=== PATIENT | male | born 1970 | race Caucasian/White ===

== ENCOUNTER 2016-10-08 10:37 | Emergency (ER) | payer OTHER ==
[2016-10-08 10:49] VITALS: BP 139/101
--- NOTE | 2016-10-08 11:58 | EDM.PDOCBH ---
ED HPI GENERAL MEDICAL PROBLEM - General Chief Complaint: Behavioral/Psych Stated Complaint: Depression Time Seen by Provider: 10/08/16 11:00 Source of Information: Reports: Patient, RN Notes Reviewed History Limitations: Reports: No Limitations - History of Present Illness INITIAL COMMENTS - FREE TEXT/NARRATIVE: 46 year old male presents to the ED today with complaints of depression, mood swings, and thoughts of suicide. He has experienced depression and suicidal thoughts in the past but denies previous suicidal attempts. He says the thoughts of suicide come and go. He does not have an active plan. He had surgery about 1.[address] Whipple. He had 3 fingers removed at the MCP joints. He is experiencing a lot of nerve and phantom pain. He was started on gabapentin and Bronx post-operatively. He is concerned that the gabapentin could be contributing to his depression. 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 He said he impulsively quit his job but feels he can likely get his job back. He describes mood swings. He says he is happy one minute and then will be tearful the next. He lives alone and becomes tearful when he says he doesn't get to see his son. He denies drug or alcohol use. He's been on antidepressants in the past but does not recall the name. He is sleeping well and his appetite is ok. He had a followup appointment with Migdalia ONEIL today at [facility]. He expressed suicidal thoughts and was sent to the ED for evaluation. Left Hand Pain Score (Numeric/FACES): 6 - Related Data Allergies Allergy/AdvReac Type Severity Reaction Status Date / Time No Known Allergies Allergy Verified 01/03/14 15:47 Home Meds: Home Meds Acetaminophen/HYDROcodone [Bronx 325-5 MG] 1 tab PO Q6H PRN 10/08/16 [History] Acetaminophen/HYDROcodone [Bronx 325-5 MG] 1 tab PO Q6H PRN #6 tablet 10/08/16 [ Rx] FLUoxetine [PROzac] 20 mg PO DAILY #30 cap 10/08/16 [Rx] Gabapentin [Neurontin] 300 mg PO TID 10/08/16 [History] Naproxen 500 mg PO BID #30 tablet 10/08/16 [Rx] Past Medical History Psychiatric History: Reports: Depression - Past Surgical History Musculoskeletal Surgical History: Reports: Other (See Below) Other Musculoskeletal Surgeries/Procedures:: finger ambutation to left hand Social & Family History - Tobacco Use Smoking Status *Q: Current Every Day Smoker Years of Tobacco use: 20 Packs/Tins Daily: 1.5 - Recreational Drug Use Recreational Drug Use: Yes Drug Use in Last 12 Months: No Recreational Drug Type: Reports: 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 Denies: Fever, Chills Respiratory: Reports: No Symptoms. Denies: Shortness of Breath Cardiovascular: Reports: No Symptoms. Denies: Chest Pain GI/Abdominal: Reports: No Symptoms. Denies: Nausea, Vomiting Neurological: Denies: Headache Psychiatric: Reports: Anxiety, Depression, Mood Lability, Suicidal Ideation ED EXAM, BEHAVIORAL HEALTH - Physical Exam Exam: See Below Exam Limited By: No Limitations General Appearance: Alert, WD/WN, No Apparent Distress, Other (tearful) Respiratory/Chest: No Respiratory Distress, Lungs Clear, Normal Breath Sounds Cardiovascular: Regular Rate, Rhythm Neurological: Alert, Normal Cognition, Normal Gait, Oriented x 3 Psychiatric: Alert, Depressed Mood, Tearful, Suicidal Thoughts, Other (Makes good eye contact, openly discusses his feelings. ). No: Poor Eye Contact, Withdrawn, Suicidal Plan, Grandiose Thoughts, Paranoid Thoughts, Threatening Behavior COURSE, BEHAVIORAL HEALTH COMP - Course Vital Signs: Last Vital Signs Temp 97.5 F 10/08/16 10:43 Pulse 54 L 10/08/16 10:43 Resp 16 10/08/16 10:43 BP 139/101 H 10/08/16 10:43 Pulse Ox 96 10/08/16 10:43 Re-Assessment/Re-Exam: I offered the patient admission but he does not feel he needs inpatient treatment. He is depressed but not actively suicidal. He reports feeling scared by his thoughts. He does not exhibit suicidal intent. He's had a lot of changes in his life recently which are contributing to his depression. I called and spoke to Psychiatrist Dr. Guzman. He recommends starting the patient on Prozac 20mg daily and then seeing him or Charleen Tavarez in follow-up in 2-3 weeks. The patient asked about a refill of his Bronx. I called and spoke to Migdalia Duncan PAC to see if they refilled his Bronx during his appointment today. Migdalia Duncan felt uncomfortable refilling his Bronx since he was voicing suicidal thoughts. Migdalia also said the patient reported a history of opiate addiction in the past. Migdalia would prefer that the patient take Naproxyn for pain. Will provide a small Rx for Bronx and a prescription for Naproxyn. Also provided prescription for Prozac. Patient agrees to return to the ED with any worsening thoughts of suicide. We scheduled him an appointment with Charleen Tavarez. Discharge instructions as documented. Departure - Departure Time of Disposition: 11:49 Disposition: Home, Self-Care 01 Condition: Good Clinical Impression: Depressive disorder, Post-operative pain - Discharge Information Prescriptions: Acetaminophen/HYDROcodone [Bronx 325-5 MG] 1 tab PO Q6H PRN #6 tablet PRN Reason: Pain FLUoxetine [PROzac] 20 mg PO DAILY #30 cap Naproxen 500 mg PO BID #30 tablet Referrals: PCP,None [Primary Care Provider] - Forms: ED Department Discharge Additional Instructions: Start Prozac 20mg once a day Follow-up with Charleen Tavarez on 10/21/16. Your appointment is at 10:00 but please arrive at 9:30 to complete paperwork Bring your photo ID Return to ER with any worsening of symptoms, thoughts of suicide, or additional concerns Continue your gabapentin I spoke to Migdalia Duncan at [facility], we are going to start you on Naproxyn 1 tab twice a day as needed for pain. You can continue your Bronx as prescribed. Follow-up with physical therapy and your surgeon as recommended.
== END 2016-10-08 12:15 | disposition home or self-care (01) ==
LOC: JD.ED 10:37
DX: F32.9 Major depressive disorder, single episode, unspecified (principal); G89.18 Other acute postprocedural pain; F17.210 Nicotine dependence, cigarettes, uncomplicated; Z79.899 Other long term (current) drug therapy
CPT/HCPCS: 99284; 99285

== ENCOUNTER 2016-11-07 17:55 | Emergency (ER) | payer OTHER ==
[2016-11-07 18:06] VITALS: BP 135/88
--- NOTE | 2016-11-07 18:25 | EDM.PDOC ---
ED HPI GENERAL MEDICAL PROBLEM - General Chief Complaint: General Stated Complaint: Medication refill Time Seen by Provider: 11/07/16 18:10 Source of Information: Reports: Patient, Old Records, RN Notes Reviewed History Limitations: Reports: No Limitations - History of Present Illness INITIAL COMMENTS - FREE TEXT/NARRATIVE: 46 year old male presents to the ED requesting refill of his Prozac. He has 1 pill left and takes it nightly. He is scheduled to see Charleen Tavarez VEHICLE ASSEMBLY INSPECTOR on the regarding his depression. I saw him earlier this month for depression. Dr. Guzman was consulted and he was started on prozac. He was scheduled with Charleen Tavarez for 10/21/16 but was unable to make his appointment due to miscommunication. He says he is feeling much better since his last visit. He is going to addiction classes for smoking. He is back to work and overall feels much better. He denies suicidal ideation. - Related Data Allergies Allergy/AdvReac Type Severity Reaction Status Date / Time No Known Allergies Allergy Verified 01/03/14 15:47 Home Meds: Home Meds FLUoxetine [PROzac] 20 mg PO DAILY #30 cap 10/08/16 [Rx] Gabapentin [Neurontin] 300 mg PO TID 10/08/16 [History] FLUoxetine [PROzac] 20 mg PO DAILY #20 cap 11/07/16 [Rx] Past Medical History Cardiovascular History: Reports: None Psychiatric History: Reports: Depression - Past Surgical History Musculoskeletal Surgical History: Reports: Other (See Below) Other Musculoskeletal Surgeries/Procedures:: finger ambutation to left hand Social & Family History - Tobacco Use Smoking Status *Q: Unknown Ever Smoked Years of Tobacco use: 20 Packs/Tins Daily: 1.5 - Recreational Drug Use Recreational Drug Use: Yes Drug Use in Last 12 Months: No 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 Denies: Headache Psychiatric: Reports: Depression ED EXAM, GENERAL - Physical Exam Exam: See Below Exam Limited By: No Limitations General Appearance: Alert, WD/WN, No Apparent Distress Respiratory/Chest: No Respiratory Distress, Lungs Clear, Normal Breath Sounds Cardiovascular: Regular Rate, Rhythm Neurological: Alert, Oriented, Normal Cognition Psychiatric: Normal Affect, Normal Mood, Other (makes eye contact, smiles, openly communicates) Skin Exam: Warm, Dry, Intact Course - Vital Signs Last Recorded V/S: Last Vital Signs Temp 96.8 F 11/07/16 18:03 Pulse 82 11/07/16 18:03 Resp 18 11/07/16 18:03 BP 135/88 11/07/16 18:03 Pulse Ox 99 11/07/16 18:03 - Re-Assessments/Exams Free Text/Narrative Re-Assessment/Exam: Rx refill sent to [facility]. Instructed to f/u with Charleen as scheduled. Departure - Departure Time of Disposition: 18:25 Disposition: Home, Self-Care 01 Condition: Good Clinical Impression: Depressive disorder - Discharge Information Prescriptions: FLUoxetine [PROzac] 20 mg PO DAILY #20 cap Instructions: Fluoxetine capsules or tablets (Depression/Mood Disorders) Referrals: PCP,None [Primary Care Provider] - Forms: ED Department Discharge Additional Instructions: Follow-up with Charleen Tavarez as scheduled Return to Er as needed Your prescription was sent to [facility]
== END 2016-11-07 18:31 | disposition home or self-care (01) ==
LOC: JD.ED 17:55
DX: F32.9 Major depressive disorder, single episode, unspecified (principal); Z79.899 Other long term (current) drug therapy
CPT/HCPCS: 99281; 99282